=== PATIENT | female | born 1960 | race Asian ===

== ENCOUNTER → 2018-05-06 | Outpatient (CLI) | payer BC ==
[2018-05-06 16:25] LABS: CHLORIDE 105 mEq/L (98-107)
[2018-05-06 16:33] LABS: BASOPHILS % 0.5 % (0.0-2.0); EOSINOPHILS % 1.4 % (0.0-5.0); HEMATOCRIT. 37.9 % (36.0-48.0); HEMOGLOBIN. 12.9 g/dL (12.0-16.0); LYMPHOCYTES % 44.3 % (20.0-50.0); MEAN CORPUSCULAR HEMOGLOBIN 33.1 pg (28.0-32.0); MEAN CORPUSCULAR VOLUME 96.9 fL (81.0-99.0); MEAN PLATELET VOLUME 7.9 fl (7.4-10.4); MONOCYTES % 7.7 % (2.0-8.0); NEUTROPHILS % 46.1 % (40.0-76.0); PLATELET 277 x1000/uL (130-400); RED BLOOD CELL COUNT 3.91 mill/uL (4.2-5.4); RED CELL DISTRIBUTION WIDTH 13.3 % (11.6-14.6)
[2018-05-06 16:34] LABS: LDL CHOLESTEROL 110 mg/dL (5-100)
[2018-05-06 16:36] LABS: HDL CHOLESTEROL 115 mg/dL (40-59)
[2018-05-06 16:40] LABS: T4 FREE 0.98 ng/dL (0.76-1.46)
== END | disposition home or self-care (01) ==
LOC: LAB 15:12
PROVIDERS: ATTEND Internal Medicine Endocrinology, Diabetes & Metabolism
DX: I10 Essential (primary) hypertension (principal); E66.9 Obesity, unspecified; R73.9 Hyperglycemia, unspecified; F41.9 Anxiety disorder, unspecified
CPT/HCPCS: 36415; 80053; 80061; 82384; 82652; 83036; 83835; 84439; 84443; 85025; 87536

== ENCOUNTER → 2020-11-05 | Outpatient (CLI) | payer BC ==
[2020-11-05 15:54] LABS: BASOPHILS % 0.8 % (0.0-2.0); EOSINOPHILS % 1.7 % (0.0-5.0); HEMATOCRIT. 39.3 % (36.0-48.0); HEMOGLOBIN. 13.3 g/dL (12.0-16.0); LYMPHOCYTES % 41.3 % (20.0-50.0); MEAN CORPUSCULAR VOLUME 97.8 fL (81.0-99.0); MONOCYTES % 7.5 % (2.0-8.0); NEUTROPHILS % 48.7 % (40.0-76.0); PLATELET 248 x1000/uL (130-400); RED BLOOD CELL COUNT 4.02 mill/uL (4.2-5.4)
[2020-11-05 16:03] LABS: CHLORIDE 110 mEq/L (98-107)
[2020-11-05 16:11] LABS: LDL CHOLESTEROL 145 mg/dL (5-100)
[2020-11-05 16:12] LABS: HDL CHOLESTEROL 98 mg/dL (40-59); T4 FREE 0.95 ng/dL (0.76-1.46)
== END | disposition home or self-care (01) ==
LOC: LAB 15:08
PROVIDERS: ATTEND Internal Medicine
DX: I10 Essential (primary) hypertension (principal); E03.9 Hypothyroidism, unspecified; E78.2 Mixed hyperlipidemia; E55.9 Vitamin D deficiency, unspecified
CPT/HCPCS: 36415; 80048; 80061; 80076; 82652; 84439; 84443; 85025

== ENCOUNTER → 2023-02-15 | Outpatient (CLI) | payer BC ==
[2023-02-15 15:28] LABS: BASOPHILS % 0.7 % (0.0-2.0); EOSINOPHILS % 8.9 % (0.0-5.0); HEMATOCRIT. 37.5 % (36.0-48.0); HEMOGLOBIN. 12.6 g/dL (12.0-16.0); LYMPHOCYTES % 28.8 % (20.0-50.0); MEAN CORPUSCULAR HEMOGLOBIN 32.8 pg (28.0-32.0); MEAN CORPUSCULAR VOLUME 97.3 fL (81.0-99.0); MEAN PLATELET VOLUME 7.9 fl (7.4-10.4); MONOCYTES % 8.3 % (2.0-8.0); NEUTROPHILS % 53.3 % (40.0-76.0); PLATELET 254 x1000/uL (130-400); RED BLOOD CELL COUNT 3.85 mill/uL (4.2-5.4); RED CELL DISTRIBUTION WIDTH 13.4 % (11.6-14.6)
[2023-02-15 16:00] LABS: CHLORIDE 106 mEq/L (98-107)
[2023-02-15 16:20] LABS: HEPATITIS B SURFACE ANTIGEN NEGATIVE
[2023-02-15 16:24] LABS: VITAMIN B12 SERUM 531 pg/mL (211-911)
== END | disposition home or self-care (01) ==
LOC: LAB 14:17
PROVIDERS: ATTEND Internal Medicine
DX: Z00.00 Encounter for general adult medical examination without abnormal findings (principal); I10 Essential (primary) hypertension; R94.6 Abnormal results of thyroid function studies; R94.5 Abnormal results of liver function studies; R10.9 Unspecified abdominal pain; E55.9 Vitamin D deficiency, unspecified; E78.00 Pure hypercholesterolemia, unspecified; D68.9 Coagulation defect, unspecified; D64.9 Anemia, unspecified; N39.0 Urinary tract infection, site not specified; Z79.899 Other long term (current) drug therapy; Z20.822 Contact with and (suspected) exposure to COVID-19
CPT/HCPCS: 36415; 80053; 80061; 80074; 82306; 82607; 84436; 84443; 84479; 85025; 85651; 86140; 86677; 86705; 86709; 86803; 87086; 87340; C9803; U0003; U0005